=== PATIENT | female | born 1945 | race Caucasian/White ===

== ENCOUNTER 2018-04-29 06:25 | Day surgery (SDC) | payer MEDICARE, OTHER ==
[~2018-04-29] VITALS: Ht 165.1 cm; Wt 85.3 kg
[~2018-04-29 06:25] MED LIST: DOXYCYCLINE HY100 MG PO; LEVOTHYROXINE100 MCG PO; TYLENOL325 M1 PO; VITAMIN D-32000 UNI1 PO
--- NOTE | 2018-04-29 07:58 | NUR ---
04/29/18 0758 Kiara Null 0751-PATIENT ARRIVED TO PACU ON 3L NC O2 WEANED TO 2L NC O2 SAT 94% PATIENT REACTIVE TO VOICE. LAYING LEFT LATERAL. ABDOMEN ROUND AND SOFT. ENCOURAGED TO PASS FLATUS. SLEEP APNEA AND DIVERTICULOSIS HANDOUT TO BE GIVEN AT DC
--- NOTE | 2018-04-29 09:05 | OR ---
[facility] [address] [place], [place] [address] Signed DATE OF OPERATION: 04/29/2018 SURGEON: Maddie Saunders MD PREOPERATIVE DIAGNOSES: 1. Rectal polyp at 14 cm (tattoo) in 2012. 2. Diverticulosis. POSTOPERATIVE DIAGNOSIS: Moderate left-sided diverticulosis. PROCEDURE: Colonoscopy without biopsy. ESTIMATED BLOOD LOSS: None. INDICATIONS: Jazmín is a 73-year-old female who returns for followup colonoscopy. She had an adenomatous polyp removed to 14 cm in 2012. We left a tattoo in that area. She had a small lipoma distal right colon. She has moderate sigmoid diverticulosis. She thinks maybe her grandmother had rectal cancer, but it could have been breast cancer. She had some diverticulitis in 2000 and I think diverticular disease in her small intestine in 2012, which both responded to antibiotics. She is retired now and says she is doing great. She has no lower GI complaints. I gave her a pamphlet on colonoscopy and we looked at that together along with the risks including, but not limited to gas, bloating, crampy abdominal pain, bleeding, perforation, requiring surgery, and missed diagnosis. We also discussed the need for IV conscious sedation. She had expressed understanding and wish to proceed. PROCEDURE NOTE: Jazmín was taken into our endoscopy suite and placed in the left lateral decubitus position. She was given 6 mg of Versed and 150 mcg of fentanyl to cover the case. A digital rectal exam was performed and this was unremarkable. The adult colonoscope was introduced and advanced all around into the cecum under direct visualization of camera without difficulty. Her prep was good. The scope was then slowly withdrawn. We saw a single diverticula in the cecum, none specifically in the right colon and we saw them again in the left colon and sigmoid colon. They were moderate in size moderate in number, and scattered about. We saw no evidence of any recurrent polyp around 14 cm. The scope had been retroflexed and there was no additional pathology noted above the Electronically Signed By: MADDIE SAUNDERS MD 04/29/18 0905 PATIENT NAME: JAZMÍN STINSON OPERATIVE REPORT DATE OF : 47 REPORT #: [id number] PHYSICIAN: MADDIE SAUNDERS MD PCP: JAY HERNDON DO REPORT IS CONFIDENTIAL AND NOT TO BE RELEASED WITHOUT AUTHORIZATION [facility] [address] [place] [id number] Signed anal canal. After this, the gas was suctioned out and colonoscope removed. Jazmín tolerated the procedure quite well. RECOMMENDATIONS: Jazmín can follow up in 5 years for repeat colonoscopy. Maddie Saunders MD ALB/FRANCIAL /[id number] cc: MD Jay Jones DO Copies: MADDIE SAUNDERS MD, ARIAN DO ~ Electronically Signed By: MADDIE SAUNDERS MD 04/29/18 0905 PATIENT NAME: JAZMÍN STINSON OPERATIVE REPORT DATE OF : 47 REPORT #: [id number] PHYSICIAN: MADDIE SAUNDERS MD PCP: JAY HERNDON DO REPORT IS CONFIDENTIAL AND NOT TO BE RELEASED WITHOUT AUTHORIZATION
== END 2018-04-29 08:36 | disposition home or self-care (01) ==
LOC: OPS 06:25 → DS 06:25 → OPS 06:45 → DS 06:45 → OPS 08:36
PROVIDERS: Colon & Rectal Surgery
PROC: 0DJD8ZZ Inspection of Lower Intestinal Tract, Via Natural or Artificial Opening Endoscopic (ICD-10-PCS; principal; 2018-04-29 06:45)
DX: Z12.11 Encounter for screening for malignant neoplasm of colon (principal); K57.30 Diverticulosis of large intestine without perforation or abscess without bleeding; E78.00 Pure hypercholesterolemia, unspecified; E55.9 Vitamin D deficiency, unspecified; E03.9 Hypothyroidism, unspecified; G43.909 Migraine, unspecified, not intractable, without status migrainosus; Z86.010 Personal history of colon polyps; Z79.899 Other long term (current) drug therapy
CPT/HCPCS: 99153; G0500; J2250; J3010; J7120

== ENCOUNTER 2024-02-09 08:20 | Day surgery (SDC) | payer MEDICARE, OTHER ==
[~2024-02-09] VITALS: Ht 165.1 cm; Wt 89.1 kg
[~2024-02-09 08:20] MED LIST changes: +IBLOOD GLUCOSE TEST STRIP 1 EA TEST VI PRN; +LACTATED RINGER'S 1,000 ML IV SCH; +LIDOCAINE HCL 1% 5 ML SDV INJ ONE; +MIDAZOLAM HCL 5 MG/5 ML VIAL IV PRN; +fentaNYL citrate 100 MCG/2 ML VIAL IV PRN
[2024-02-09 08:43] VITALS: BP 133/78
[2024-02-09] MEDS ORDERED: fentaNYL citrate 100 MCG/2 ML VIAL ONE (09:41)
[2024-02-09] MEDS ORDERED: MIDAZOLAM HCL 5 MG/5 ML VIAL ONE (09:41)
--- NOTE | 2024-02-09 10:43 | NUR ---
02/09/24 Kendrick3 Kiara Null 1028-PATIENT ARRIVED TO PACU ON 3L NC RR EVEN. PATIENT REACTIVE TO VERBAL STIMULI REMAINS DROWSY DENIES PAIN OR NAUSEA LAYING LEFT LATERAL. ABDOMEN SOFT. IVF SLOWLY INFUSING. IV FLUSHED. FLUIDS HUNG HIGHER AND INFUSING. PATIENT PASSING GAS
[2024-02-09 11:34] VITALS: BP 130/80
--- NOTE | 2024-02-10 06:55 | OR ---
[facility] [address] [place], [place] [address] Signed DATE OF OPERATION: 02/09/2024 SURGEON: Maddie Saunders MD PREOPERATIVE DIAGNOSES: 1. Mother with colonic polyps. 2. Tattoo posterior midline of rectum. 3. Diverticulosis. 4. Small lipoma and distal right colon. POSTOPERATIVE DIAGNOSES: 1. A 4 mm polypoid lesion, hepatic flexure. 2. Right and left-sided diverticulosis. 3. Minimal internal hemorrhoids. 4. Tattoo at 8 cm. PROCEDURE: Colonoscopy with hot biopsy. ESTIMATED BLOOD LOSS: None. INDICATIONS: Jazmín is a 78-year-old female asked to see me for followup colonoscopy. She has no lower GI complaints. She learned that her paternal grandmother had breast cancer. Her mother had colonic polyps. Her mom and dad have both lived to be at age 97. Jazmín is still in good shape and functional status. I helped her in 2012 and again in 2018 with colonoscopies. She always does well with Versed and fentanyl. We removed an 8 mm tubular adenomatous polyp in the posterior midline of her rectum. We left a small tattoo. She had a small lipoma in the distal right colon. We did not see this on today. She had moderate diverticulosis. She has had diverticulitis in 2000 and 2012. She returns now for followup colonoscopy. I have given her a pamphlet on colonoscopy, we looked at that together. She recalls the nature of the test. There is risk including, but not limited to gas bloating, crampy abdominal pain, bleeding, perforation requiring surgery, and missed diagnosis. We also reviewed the written instructions for the bowel prep line by line. She recalls the need for IV conscious sedation. She had expressed understanding and wished to proceed. DESCRIPTION OF PROCEDURE: Jazmín was taken into our endoscopy suite and placed in the left lateral decubitus Electronically Signed By: MADDIE SAUNDERS MD 02/10/24 0655 PATIENT NAME: JAZMÍN STINSON OPERATIVE REPORT DATE OF : 47 REPORT #: [id number] PHYSICIAN: MADDIE SAUNDERS MD PCP: CRISTOFER TIJERINA MD REPORT IS CONFIDENTIAL AND NOT TO BE RELEASED WITHOUT AUTHORIZATION [facility] [address] [place], [place] [address] Signed position. She was given 5 mg of Versed and 100 mcg of fentanyl to cover the case. Digital rectal exam was performed and this was unremarkable. She had no external hemorrhoids. She had good sphincter tone. There were no masses. The adult colonoscope was introduced and advanced under direct visualization of camera without much difficulty. We went up through the sigmoid colon and into the cecum itself. We could easily see the appendiceal orifice and ileocecal valve. The scope was then slowly withdrawn. She had just a couple of diverticula in the distal right colon. I did not see the small lipoma in the distal right colon on this occasion. She had a very tiny polypoid lesion in the hepatic flexure, so we went ahead and removed that and destroyed it completely with the hot biopsy forceps. She does have diverticula in the left and sigmoid colon. These are moderate in size, moderate in number and scattered about. Once in the rectum, we could see the small tattoo at about 8 cm. No evidence of any recurrent polyp. Upon retroflexion of scope, she has very minimal internal hemorrhoid tissue. After this, the gas was suctioned out. The colonoscope removed. Jazmín tolerated the procedure quite well. RECOMMENDATIONS: I will see Jazmín back in my office in 7 to 14 days to review her results. She will likely stay on the five year plan so long as her health holds up. Maddie Saunders MD ALB/MODL /[id number] cc: MD Cristofer Jones MD Patient Chart Copies: MADDIE SAUNDERS MD Electronically Signed By: MADDIE SAUNDERS MD 02/10/24 0655 PATIENT NAME: JAZMÍN STINSON OPERATIVE REPORT DATE OF : 47 REPORT #: [id number] PHYSICIAN: MADDIE SAUNDERS MD PCP: CRISTOFER TIJERINA MD REPORT IS CONFIDENTIAL AND NOT TO BE RELEASED WITHOUT AUTHORIZATION [address] [address] Signed CRISTOFER TIJERINA MD ~ Electronically Signed By: MADDIE SAUNDERS MD 02/10/24 0655 PATIENT NAME: JAZMÍN STINSON OPERATIVE REPORT DATE OF : 47 REPORT #: [id number] PHYSICIAN: MADDIE SAUNDERS MD PCP: CRISTOFER TIJERINA MD REPORT IS CONFIDENTIAL AND NOT TO BE RELEASED WITHOUT AUTHORIZATION
== END 2024-02-09 11:35 | disposition home or self-care (01) ==
LOC: DS 08:20
PROVIDERS: ATTEND Colon & Rectal Surgery
PROC: 0DBL8ZX Excision of Transverse Colon, Via Natural or Artificial Opening Endoscopic, Diagnostic (ICD-10-PCS; principal; 2024-02-09 09:45)
DX: D12.3 Benign neoplasm of transverse colon (principal); K64.8 Other hemorrhoids; N18.9 Chronic kidney disease, unspecified; E03.9 Hypothyroidism, unspecified; E78.2 Mixed hyperlipidemia; M47.816 Spondylosis without myelopathy or radiculopathy, lumbar region; K57.90 Diverticulosis of intestine, part unspecified, without perforation or abscess without bleeding; Z83.719 Family history of colon polyps, unspecified
CPT/HCPCS: 88305; 99153; G0500; J2250; J3010; J7121